=== PATIENT | male | born 1995 | race Hispanic/Latino ===

== ENCOUNTER 2019-02-07 12:11 | Emergency (ER) | payer SELFPAY ==
--- NOTE | 2019-02-07 12:41 | ER ---
Nurse's Notes [facility] Name: Jonh Qureshi Age: 23 yrs Sex: Male : 1995 Arrival Date: 02/07/2019 Time: 12:16 Bed 10 Private MD: Diagnosis: Abnormal Skin Growth Presentation: 02/07 12:22 Presenting complaint: Patient states: I have had this thing on the right side of my la1 face for >6 months and its ugly and smells bad, I thought maybe you could take it off for me. Transition of care: patient was not received from another setting of care. Onset of symptoms was February 07, 2019. Risk Assessment: Do you want to hurt yourself or someone else? Patient reports no desire to harm self or others. Initial Sepsis Screen: Does the patient meet any 2 criteria? No. Patient's initial sepsis screen is negative. Does the patient have a suspected source of infection? No. Patient's initial sepsis screen is negative. Care prior to arrival: None. 12:22 Method Of Arrival: Ambulatory la1 12:22 Acuity: TEA 5 la1 Historical: - Allergies: 12:23 No Known Allergies; la1 - PMHx: 12:23 None; la1 - Immunization history:: Adult Immunizations up to date. - Social history:: Smoking status: Patient/guardian denies using tobacco. - Ebola Screening: : No symptoms or risks identified at this time. Screenin:23 Abuse screen: Denies threats or abuse. Nutritional screening: No deficits noted. la1 Tuberculosis screening: No symptoms or risk factors identified. Fall Risk None identified. Assessment: 12:23 Reassessment: Patient is alert, oriented x 3, equal unlabored respirations, skin la1 warm/dry/pink. General: Appears in no apparent distress. Derm: Small wart like structure to right jaw line, rough. Vital Signs: 12:23 BP 132 / 75; Pulse 77; Resp 16; Temp 98.5; Pulse Ox 98% on R/A; Weight 101.6 kg; Height la1 5 ft. 6 in. (167.64 cm); 12:23 Body Mass Index 36.15 (101.60 kg, 167.64 cm) la1 ED Course: 12:16 Patient arrived in ED. mr 12:16 Evie Phillips FNP-C is [facility]. kb 12:16 Rayo Michaud MD is Attending Physician. kb 12:22 Triage completed. la1 12:23 Arm band placed on right wrist. la1 12:24 Patient has correct armband on for positive identification. la1 12:45 Seth Metcalf, RN is Primary Nurse. la1 Administered Medications: No medications were administered Outcome: 12:40 Discharge ordered by . kb 12:45 Discharged to home ambulatory. la1 12:45 Condition: stable 12:45 Discharge instructions given to patient, Instructed on discharge instructions, follow up and referral plans. medication usage, Demonstrated understanding of instructions, follow-up care. 12:47 Patient left the ED. iw Signatures: Evie Phillips FNP-C FNP-Aurelia Browne Kaylan Pagan, RN RN iw Seth Metcalf, CHUY RN la1
--- NOTE | 2019-02-07 12:41 | EDPHYS ---
Physician Documentation [facility] Name: Jonh Qureshi Age: 23 yrs Sex: Male : 1995 Arrival Date: 02/07/2019 Time: 12:16 Bed 10 Private MD: ED Physician Rayo Michaud HPI: 02/07 12:45 This 23 yrs old Male presents to ER via Ambulatory with complaints of Skin kb Problem. 12:45 The patient's rash thought to be caused by an unknown cause. The rash is located on the kb right jaw. The rash can be described as white growth. Onset: The symptoms/episode began/occurred 7 month(s) ago. Associated signs and symptoms: Pertinent positives: None. Severity of symptoms: At their worst the symptoms were mild in the emergency department the symptoms are unchanged. Treatment given at home: a liquid to take it off. The patient has not experienced similar symptoms in the past. The patient has not recently seen a physician. Pt reports a growth that started 7 months ago. He put some kind of liquid on it that made it go away, but it grew back. Came today because he doesn't like how it looks and wants it removed. Historical: - Allergies: 12:23 No Known Allergies; la1 - PMHx: 12:23 None; la1 - Immunization history:: Adult Immunizations up to date. - Social history:: Smoking status: Patient/guardian denies using tobacco. - Ebola Screening: : No symptoms or risks identified at this time. ROS: 12:43 Constitutional: Negative for fever, chills, and weight loss, Cardiovascular: Negative kb for chest pain, palpitations, and edema, Respiratory: Negative for shortness of breath, cough, wheezing, and pleuritic chest pain, Abdomen/GI: Negative for abdominal pain, nausea, vomiting, diarrhea, and constipation, MS/Extremity: Negative for injury and deformity, Neuro: Negative for headache, weakness, numbness, tingling, and seizure. 12:43 Skin: Positive for of the right jaw, lesion. Exam: 12:44 Constitutional: This is a well developed, well nourished patient who is awake, alert, kb and in no acute distress. Head/Face: Normocephalic, atraumatic. Chest/axilla: Normal chest wall appearance and motion. Nontender with no deformity. No lesions are appreciated. Cardiovascular: Regular rate and rhythm with a normal S1 and S2. No gallops, murmurs, or rubs. Normal PMI, no JVD. No pulse deficits. Respiratory: Lungs have equal breath sounds bilaterally, clear to auscultation and percussion. No rales, rhonchi or wheezes noted. No increased work of breathing, no retractions or nasal flaring. Abdomen/GI: Soft, non-tender, with normal bowel sounds. No distension or tympany. No guarding or rebound. No evidence of tenderness throughout. MS/ Extremity: Pulses equal, no cyanosis. Neurovascular intact. Full, normal range of motion. Neuro: Awake and alert, GCS 15, oriented to person, place, time, and situation. Cranial nerves II-XII grossly intact. Motor strength 5/5 in all extremities. Sensory grossly intact. Cerebellar exam normal. Normal gait. 12:44 Skin: lesion(s), noted, and can be described as white, hair-like, size of pencil eraser. Vital Signs: 12:23 BP 132 / 75; Pulse 77; Resp 16; Temp 98.5; Pulse Ox 98% on R/A; Weight 101.6 kg; Height la1 5 ft. 6 in. (167.64 cm); 12:23 Body Mass Index 36.15 (101.60 kg, 167.64 cm) la1 MDM: 12:24 Patient medically screened. kb 12:29 Patient medically screened. gil 12:36 Data reviewed: vital signs, nurses notes. Data interpreted: Pulse oximetry: on room air kb is 98 %. Interpretation: normal. Counseling: I had a detailed discussion with the patient and/or guardian regarding: the historical points, exam findings, and any diagnostic results supporting the discharge/admit diagnosis, the need for outpatient follow up, a phytochemistry professor, to return to the emergency department if symptoms worsen or persist or if there are any questions or concerns that arise at home. Administered Medications: No medications were administered Disposition: 02/07/19 12:40 Discharged to Home. Impression: Abnormal Skin Growth. - Condition is Stable. - Discharge Instructions: Excision of Skin Lesions. - Medication Reconciliation Form, Thank You Letter, Antibiotic Education, Prescription Opioid Use form. - Follow up: Emergency Department; When: As needed; Reason: Worsening of condition. Follow up: Private Physician; When: 2 - 3 days; Reason: Recheck today's complaints, Continuance of care, Re-evaluation by your physician. Addendum: 02/09/2019 09:39 Co-signature as Attending Physician, Rayo Michaud MD I agree with the assessment and c holt plan of care. Signatures: Evie Phillips, VALUE STREAM COACH-C VALUE STREAM COACH-Ckb Rayo Michaud MD MD cha Williams, Irene RN RN iw Seth Metcalf RN RN la1 Corrections: (The following items were deleted from the chart) 02/07 12:47 12:40 02/07/2019 12:40 Discharged to Home. Impression: Abnormal Skin Growth. Condition iw is Stable. Forms are Medication Reconciliation Form, Thank You Letter, Antibiotic Education, Prescription Opioid Use. Follow up: Emergency Department; When: As needed; Reason: Worsening of condition. Follow up: Private Physician; When: 2 - 3 days; Reason: Recheck today's complaints, Continuance of care, Re-evaluation by your physician. kb
== END 2019-02-07 12:47 | disposition home or self-care (01) ==
LOC: ER 12:11
DX: L98.8 Other specified disorders of the skin and subcutaneous tissue (principal)
CPT/HCPCS: 99281

== ENCOUNTER 2019-03-09 12:44 | Emergency (ER) | payer SELFPAY ==
--- NOTE | 2019-03-09 14:27 | ER ---
Nurse's Notes [facility] Name: Jonh Qureshi Age: 23 yrs Sex: Male : 1995 Arrival Date: 03/09/2019 Time: 12:49 Bed 9 Private MD: None, None Diagnosis: Presentation: 03/09 13:13 Presenting complaint: Patient states: abscess to right forearm that began 2 days ago. aa5 Transition of care: patient was not received from another setting of care. Onset of symptoms was February 2019. Risk Assessment: Do you want to hurt yourself or someone else? Patient reports no desire to harm self or others. Initial Sepsis Screen: Does the patient meet any 2 criteria? No. Patient's initial sepsis screen is negative. Does the patient have a suspected source of infection? No. Patient's initial sepsis screen is negative. Care prior to arrival: None. 13:13 Acuity: TEA 4 aa5 13:13 Method Of Arrival: Ambulatory aa5 Historical: - Allergies: 13:14 No Known Allergies; aa5 - PMHx: 13:14 None; aa5 - PSHx: 13:14 None; aa5 - Immunization history:: Adult Immunizations unknown. - Social history:: Smoking status: Patient uses tobacco products, smokes one-half pack cigarettes per day. - Ebola Screening: : No symptoms or risks identified at this time. Vital Signs: 13:14 BP 134 / 74; Pulse 82; Resp 18 S; Temp 98.4(TE); Pulse Ox 98% on R/A; Weight 99.79 kg aa5 (R); Height 5 ft. 6 in. (167.64 cm) (R); Pain 10/10; 13:14 Body Mass Index 35.51 (99.79 kg, 167.64 cm) aa5 ED Course: 12:49 Patient arrived in ED. dp 12:49 None, None is Private Physician. dp 13:13 Arm band placed on. aa5 13:14 Triage completed. aa5 14:26 Rizwan Fiore MD is Attending Physician. aa5 Administered Medications: No medications were administered Outcome: 14:25 Eloped from waiting room, Time discovered patient gone: March 09, 2019 at 14:25 aa5 14:26 Patient left the ED. aa5 Signatures: Anila Seth RN RN aa5 Dion Desouza dp
== END 2019-03-09 14:26 | disposition left against medical advice (07) ==
LOC: ER 12:44
DX: Z53.21 Procedure and treatment not carried out due to patient leaving prior to being seen by health care provider (principal)
CPT/HCPCS: 99281